=== PATIENT | female | born 1955 | race Caucasian/White ===

== ENCOUNTER 2019-01-05 09:35 | Emergency (ER) | payer OTHER ==
--- NOTE | 2019-01-05 09:57 | ED Physician Documentation ---
PD HPI ABD PAIN - Stated complaint Stated Complaint: SIDE PX - Chief complaint Chief Complaint: Abd Pain - History obtained from History obtained from: Patient - History of Present Illness Timing - onset: How many days ago (2) Timing - duration: Days (2) Timing - details: Gradual onset, Still present Quality: Aching, Sharp, Pain, Other (No noted injury. She does do horseback riding and gardening but was not aware of any abrupt injury or pain or fall.) Location: RLQ Radiation: Right flank Improved by: Position. No: Eating Worsened by: Moving, Position (Walking around and bending over hurts more. Standing still or laying hurts less.). No: Eating, Breathing, Palpation Associated symptoms: Other (denies cough nor dyspnea.). No: Fever, Nausea, Vomiting, Diarrhea, Constipation, Dysuria, Chest pain, Loss of appetite Similar symptoms before: Has not had sx before Recently seen: Not recently seen Review of Systems Constitutional: denies: Fever, Chills Nose: denies: Rhinorrhea / runny nose, Congestion Throat: denies: Sore throat Cardiac: denies: Chest pain / pressure Respiratory: denies: Dyspnea, Cough GI: reports: Abdominal Pain. denies: Nausea, Vomiting, Constipation, Diarrhea, Bloody / black stool : denies: Dysuria, Frequency Skin: denies: Rash, Lesions Neurologic: denies: Focal weakness, Numbness PD PAST MEDICAL HISTORY - Past Medical History Cardiovascular: None Respiratory: None Neuro: None Endocrine/Autoimmune: None - Past Surgical History Past Surgical History: Yes /[employer]: Hysterectomy - Present Medications Home Medications: Ambulatory Orders Medication Instructions Recorded Confirmed Estrogens,Esterified [Menest] 07/10/15 Naproxen 500 mg PO BID #20 tablet 01/05/19 Tramadol HCl 50 mg PO Q6H PRN #20 tablet 01/05/19 - Allergies Allergies/Adverse Reactions: Allergies Allergy/AdvReac Type Severity Reaction Status Date / Time iodine Allergy Unknown Verified 01/05/19 09:50 - Social History Does the pt smoke?: No Smoking Status: Never smoker Does the pt drink ETOH?: No Does the pt have substance abuse?: No - POLST Patient has POLST: No PD ED PE NORMAL - Vitals Vital signs reviewed: Yes - General General: Alert and oriented X 3, Well developed/nourished, Other (Seems uncomfortable with some guarded movement of the trunk, particularly for torsion of the trunk and bending over. There is some tenderness of the lateral muscles. There is no spinal tenderness. There is no rash nor sores. The skin is not tender to light touch.) - HEENT HEENT: Pharynx benign - Neck Neck: Supple, no meningeal sign, No adenopathy - Cardiac Cardiac: RRR, No murmur - Respiratory Respiratory: Clear bilaterally - Abdomen Abdomen: Normal bowel sounds, Soft, Non distended, No organomegaly, Other (Tenderness along the lateral aspect of the abdominal wall. There is no tenderness in the umbilical nor right lower quadrant area itself. The iliac crest and upper part of the SI joint is slightly tender.) - Back Back: No CVA TTP, No spinal TTP - Derm Derm: Normal color, Warm and dry, No rash - Extremities Extremities: Normal ROM s pain, No edema, No calf tenderness / cord - Neuro Neuro: Alert and oriented X 3, No motor deficit, No sensory deficit, Normal speech Results - Vitals Vitals: Vital Signs - 24 hr 01/05/19 01/05/19 01/05/19 09:48 13:01 13:46 Temperature 36.5 C 36.6 C 36.5 C Heart Rate 65 59 L 103 H Respiratory 16 16 16 Rate Blood Pressure 174/95 H 160/89 H 145/79 H O2 Saturation 100 98 99 Oxygen O2 Source Room air - Labs Labs: Laboratory Tests 01/05/19 01/05/19 01/05/19 10:35 10:35 10:35 WBC 5.4 RBC 4.26 Hgb 12.8 Hct 38.5 MCV 90.4 MCH 30.0 MCHC 33.2 RDW 12.5 Plt Count 251 MPV 9.1 Neut # (Auto) 2.8 Lymph # (Auto) 1.8 [place] # (Auto) 0.5 Eos # (Auto) 0.2 Baso # (Auto) 0.1 Absolute Nucleated RBC 0.00 Nucleated RBC % 0.0 ESR 7 Sodium 136 Potassium 3.6 Chloride 98 L Carbon Dioxide 29 Anion Gap 9.0 BUN 14 Creatinine 0.7 Estimated GFR (MDRD) 85 L Glucose 84 Calcium 9.2 Total Bilirubin 0.6 AST 22 ALT 14 Alkaline Phosphatase 39 L Total Protein 7.9 Albumin 4.9 Globulin 3.0 Albumin/Globulin Ratio 1.6 Lipase 52 H Urine Color Urine Clarity Urine pH Ur Specific [place] Urine Protein Urine Glucose (UA) Urine Ketones Urine Occult Blood Urine Nitrite Urine Bilirubin Urine Urobilinogen Ur Leukocyte Esterase Ur Microscopic Review Urine Culture Comments 01/05/19 10:45 WBC RBC Hgb Hct MCV MCH MCHC RDW Plt Count MPV Neut # (Auto) Lymph # (Auto) [place] # (Auto) Eos # (Auto) Baso # (Auto) Absolute Nucleated RBC Nucleated RBC % ESR Sodium Potassium Chloride Carbon Dioxide Anion Gap BUN Creatinine Estimated GFR (MDRD) Glucose Calcium Total Bilirubin AST ALT Alkaline Phosphatase Total Protein Albumin Globulin Albumin/Globulin Ratio Lipase Urine Color LIGHT YELLOW Urine Clarity CLEAR Urine pH 6.5 Ur Specific [place] <=1.005 Urine Protein NEGATIVE Urine Glucose (UA) NEGATIVE Urine Ketones NEGATIVE Urine Occult Blood NEGATIVE Urine Nitrite NEGATIVE Urine Bilirubin NEGATIVE Urine Urobilinogen 0.2 (NORMAL) Ur Leukocyte Esterase NEGATIVE Ur Microscopic Review NOT INDICATED Urine Culture Comments NOT INDICATED - Rads (name of study) abd CT Radiology: Prelim report reviewed (There is some scarring or atelectasis noted in the lower right middle lobe. The patient however does not have any coughing or wheezing or shortness of breath. Otherwise no acute abnormalities seen on CT scan to account for the pain.), See rad report PD MEDICAL DECISION MAKING - ED course Complexity details: reviewed results (The patient does not have any pulmonary symptoms. The CT finding of some atelectasis or scarring is probably just scarring. No other acute abnormality on scan and her blood count and urine tests are normal as well. We will treated as myofascial pain.), considered differential (This may be musculoskeletal pain with some pain on movement and a little bit of tenderness in the muscle. There is no tenderness at the SI joint as well. However consideration would be for kidney stone or kidney infection or even atypical presentation of diverticulitis on the right or appendix. We will get a CT scan to evaluate particularly for stone.), d/w patient Departure - Departure Disposition: 01 Home, Self Care Clinical Impression: Right sided abdominal pain, Muscular abdominal pain in right lower quadrant Condition: Stable Record reviewed to determine appropriate education?: Yes Instructions: ED Strain Abdominal Muscle Prescriptions: Naproxen 500 mg PO BID #20 tablet Tramadol HCl 50 mg PO Q6H PRN #20 tablet PRN Reason: Pain Comments: Your CT scan showed normal abdominal organ and kidney findings. There was some mild scarring or atelectasis in the base of the lung but this does not sound like it is the cause of your pain. Presume it some muscular type pain or some arthritic in the hip area. Treat this with some anti-inflammatories such as naproxen twice daily with food for the next 7 to 10 days. 2 would add Tylenol 4 times a day or tramadol if needed for worse pain. Heat and gentle stretching and activity as tolerated. Recheck if not improved well over the next several days to week. Return if other symptoms develop such as fever, cough, rash, worsening pain or other concerns.
[2019-01-05] MEDS ORDERED: KETOROLAC 15 MG/ML VIAL IVP STA (10:27)
[2019-01-05 10:45] LABS: BASOPHILS # (AUTO) 0.1 10^3/uL (0.0-0.1); BASOPHILS % (AUTO) 1.3 %; EOSINOPHILS # (AUTO) 0.2 10^3/uL (0.0-0.7); HGB - HEMOGLOBIN 12.8 g/dL (12.0-16.0); LYMPHOCYTES # (AUTO) 1.8 10^3/uL (1.5-3.5); MEAN CORPUSCULAR HGB CONC 33.2 g/dL (32.0-36.0); MEAN CORPUSCULAR VOLUME 90.4 fL (81.0-99.0); MEAN PLATELET VOLUME 9.1 fL (7.9-10.8); MONOCYTES # (AUTO) 0.5 10^3/uL (0.0-1.0); MONOCYTES % (AUTO) 8.9 %; NEUTROPHILS # (AUTO) 2.8 10^3/uL (1.5-6.6); NEUTROPHILS % (AUTO) 52.6 %; PLT - PLATELET COUNT 251 10^3/uL (130-450); RED BLOOD COUNT 4.26 10^6/uL (4.20-5.40); RED CELL DISTRIBUTION WIDTH 12.5 % (12.0-15.0); WHITE BLOOD COUNT 5.4 x10^3/uL (4.8-10.8)
[2019-01-05 10:59] LABS: ALBUMIN 4.9 g/dL (3.2-5.5); ALBUMIN/GLOBULIN RATIO 1.6 (1.0-2.2); BILIRUBIN,TOTAL 0.6 mg/dL (0.2-1.0); CALCIUM 9.2 mg/dL (8.5-10.3); CREATININE 0.7 mg/dL (0.4-1.0); TOTAL PROTEIN 7.9 g/dL (6.7-8.2)
[2019-01-05 11:04] LABS: BILIRUBIN,URINE NEGATIVE (NEGATIVE); GLUCOSE, URINE (UA) NEGATIVE (NEGATIVE); KETONES,URINE (UA) NEGATIVE (NEGATIVE); LEUKOCYTE ESTERASE, URINE NEGATIVE (NEGATIVE); NITRITE,URINE NEGATIVE (NEGATIVE); OCCULT BLOOD,URINE NEGATIVE (NEGATIVE); PH,URINE 6.5 PH (5.0-7.5); PROTEIN,URINE NEGATIVE (NEGATIVE); UROBILINOGEN,URINE 0.2 (NORMAL) E.U./dL (NORMAL)
[2019-01-05 11:06] LABS: CLARITY,URINE CLEAR (CLEAR)
--- NOTE | 2019-01-05 12:29 | CT Report ---
Reason: right flank and low abd pain Procedure Date: 01/05/2019 Accession Number: [id number] / [id number] Procedure: CT - Abdomen/Pelvis WO CPT Code: FULL RESULT: EXAM: CT ABDOMEN AND PELVIS (CT KUB) EXAM DATE: 01/05/2019 12:03 PM. CLINICAL HISTORY: Right flank and low abd pain. COMPARISONS: None. TECHNIQUE: Routine axial helical CT imaging was performed through the abdomen and pelvis without IV contrast. Reconstructions: Coronal and sagittal. In accordance with CT protocol optimization, one or more of the following dose reduction techniques were utilized for this exam: automated exposure control, adjustment of mA and/or KV based on patient size, or use of iterative reconstructive technique. FINDINGS: Lung Bases: Unremarkable. Mild bilateral lower lobe posterior, basilar probable atelectasis or scarring. Mild streaky and groundglass opacity within the right middle lobe may also represent atelectasis or scarring although acute infiltrate is not excluded. No dense consolidation. However, there is some subtle associated nodularity including a 2 mm nodule near the upper portion of this (3/11). In addition, on images 1 anterior there is a solid 4 mm pleural-based middle lobe nodule which may not be fully included. Right Kidney/Ureter: No stones, hydronephrosis, or hydroureter. No perinephric fat stranding. Left Kidney/Ureter: No stones, hydronephrosis, or hydroureter. No perinephric fat stranding. Other Solid Organs: Noncontrast images of the solid organs are grossly unremarkable. Gallbladder/Bile Ducts: Unremarkable. Peritoneal Cavity: No free fluid, free air or saundra adenopathy. Bowel is grossly unremarkable. A portion of the appendix is visualized and appears normal. Pelvic Organs: No bladder stones or wall thickening. Noncontrast images of the visualized pelvic organs are unremarkable. Vasculature: Unremarkable. Other: None. IMPRESSION: 1. No urinary tract stones or obstruction. 2. The visualized portion of the appendix appears normal. 3. Mild bibasilar lower lobe probable atelectasis or scarring. 4. Right middle lobe opacity could represent atelectasis, scarring or acute infiltrate. There are also small right middle lobe pulmonary nodules measuring up to at least 4 mm. These findings are of undocumented chronicity. Follow-up could be performed to assess stability. [facility]
[2019-01-05 13:48] VITALS: BP 145/79
== END 2019-01-05 13:55 | disposition home or self-care (01) ==
LOC: ED 09:35
DX: M79.18 Myalgia, other site (principal); R10.31 Right lower quadrant pain
CPT/HCPCS: 36415; 74176; 80053; 81001; 81003; 83690; 85025; 85651; 87086; 96374; 99284